=== PATIENT | female | born 1975 | race Hispanic/Latino ===

== ENCOUNTER 2022-01-02 05:37 | Observation (INO) | payer OTHER ==
[2022-01-01 15:58] LABS: BASOPHILS % (AUTO) 0.6 % (0.0-5.0); EOSINOPHILS % (AUTO) 1.7 % (0.0-8.0); HEMATOCRIT 31.7 % (36-48); LYMPHOCYTES % (AUTO) 18.4 % (21.0-51.0); MEAN CORPUSCULAR HEMOGLOBIN 22.4 pg (27.0-33.0); MEAN CORPUSCULAR HGB CONC 29.3 g/dL (32.0-36.0); MEAN CORPUSCULAR VOLUME 76.4 fL (79-99); MONOCYTES % (AUTO) 5.8 % (3.0-13.0); PLATELET COUNT (AUTO) 370 K/uL (130-400); RED BLOOD CELL COUNT(AUTO) 4.15 MIL/uL (4.00-5.50); RED CELL DISTRIBUTION WIDTH 16.5 % (11.0-15.5); WHITE BLOOD COUNT (AUTO) 10.9 K/uL (4.8-10.8)
[2022-01-01 16:08] VITALS: BP 158/98
[2022-01-01 16:15] LABS: APPEARANCE,URINE CLOUDY (CLEAR); BILIRUBIN,URINE NEGATIVE (NEGATIVE); COLOR,URINE YELLOW (YELLOW); GLUCOSE, URINE (UA) NEGATIVE (NEGATIVE); KETONES,URINE NEGATIVE (NEGATIVE); LEUKOCYTE ESTERASE ,URINE NEGATIVE (NEGATIVE); NITRATE,URINE NEGATIVE (NEGATIVE); OCCULT BLOOD,URINE LARGE (NEGATIVE); PROTEIN,URINE NEGATIVE (NEGATIVE); UROBILINOGEN,URINE 0.2 mg/dL (0.2-1.0)
[2022-01-01 16:17] LABS: PROTHROMBIN TIME 10.9 SEC (9.6-11.6)
[2022-01-01 16:18] LABS: PARTIAL THROMBOPLASTIN TIME 27.3 SEC (26.3-35.5)
[2022-01-01 16:22] LABS: BACTERIA,URINE Rare /HPF (None Seen); RBC,URINE 51-100 /HPF (0-1); SQUAMOUS EPITHELIAL CELL,UR Rare /HPF (0-2); WBC,URINE 0-1 /HPF (0-1)
[~2022-01-02] VITALS: Ht 132.1 cm; Wt 110.2 kg
[2022-01-02] VITALS (21 sets, daily range): BP systolic 134–184; BP diastolic 67–95
[2022-01-02] MEDS ORDERED: CEFAZOLIN SODIUM 1 GM VIAL ONE (07:57)
[2022-01-02] MEDS ORDERED: LACTATED RINGERS 1000ML 1,000 ML IV ONE (07:57)
[2022-01-02] MEDS ORDERED: ONDANSETRON 4MG INJ ONE ×2 (12:40→16:54)
[2022-01-02] MEDS ORDERED: FENTANYL CITRATE PF 50 MCG/1 ML 2ML VIAL ONE ×2 (12:40→16:54)
[2022-01-02] MEDS ORDERED: PROPOFOL 10 MG/ML 20ML VIAL IV ONE (12:40)
[2022-01-02] MEDS ORDERED: MIDAZOLAM HCL 1 MG/ML 2ML VIAL ONE (12:40)
[2022-01-02] MEDS ORDERED: SUCCINYLCHOLINE CHLORIDE 20 MG/ML 10 ML VIAL ONE (12:40)
[2022-01-02] MEDS ORDERED: ROCURONIUM 10MG/1ML SYR 10 MG/ML ML ONE ×2 (12:40→14:23)
[2022-01-02] MEDS ORDERED: CEFAZOLIN SODIUM 2 GM VIAL IV ONE (14:02)
[2022-01-02] MEDS ORDERED: METHYLENE BLUE 5 MG/ML AMP ONE (14:46)
[2022-01-02] MEDS ORDERED: HYDRALAZINE 20MG/ML VIAL ONE (17:13)
[2022-01-02] MEDS ORDERED: MEPERIDINE-PF 50 MG/ML SYG ONE (17:36)
[2022-01-02] MEDS ORDERED: METOCLOPRAMIDE 10 MG/2 ML VIAL ONE (17:43)
[2022-01-02] MEDS ORDERED: PROMETHAZINE HCL 25 MG/ML 1ML AMPULE IM PRN ×2 (19:00)
[2022-01-02] MEDS ORDERED: BISACODYL 10 MG SUPP.RECT RC PRN (19:00)
[2022-01-02] MEDS ORDERED: DEXTROSE 5 %-0.45 % NACL 1,000 ML IV PRN (19:00)
[2022-01-02] MEDS ORDERED: IBUPROFEN 600 MG TABLET PO PRN (19:00)
[2022-01-02] MEDS ORDERED: ONDANSETRON 4MG INJ IVP PRN (19:00)
[2022-01-02] MEDS: ACETAMINOPHEN WITH CODEINE 1 TAB TAB PO PRN (20:06)
[2022-01-02] MEDS: SIMETHICONE 80 MG TAB.CHEW PO PRN (21:56)
[2022-01-02] MEDS: DOCUSATE SODIUM 100 MG CAP PO PRN (21:57)
[2022-01-02] MEDS: MEPERIDINE-PF 75 MG/ML SYG IM PRN (23:25)
[2022-01-03] MEDS: MEPERIDINE-PF 75 MG/ML SYG IM PRN (01:06)
[2022-01-03 02:25] VITALS: BP 134/61
[2022-01-03 05:11] LABS: HEMATOCRIT 31.3 % (36-48); MEAN CORPUSCULAR HEMOGLOBIN 22.6 pg (27.0-33.0); MEAN CORPUSCULAR HGB CONC 30.4 g/dL (32.0-36.0); MEAN CORPUSCULAR VOLUME 74.5 fL (79-99); RED BLOOD CELL COUNT(AUTO) 4.2 MIL/uL (4.00-5.50); RED CELL DISTRIBUTION WIDTH 16.4 % (11.0-15.5); WHITE BLOOD COUNT (AUTO) 16.9 K/uL (4.8-10.8)
[2022-01-03] MEDS ORDERED: HYDROCODONE/ACETAMINOPHEN 5/325 MG TAB PO PRN (06:00)
[2022-01-03] MEDS ORDERED: IBUPROFEN 800 MG TAB PO PRN (06:00)
[2022-01-03 07:38] VITALS: BP 131/60
[2022-01-03] MEDS: SIMETHICONE 80 MG TAB.CHEW PO PRN (07:56)
[2022-01-03] MEDS: DOCUSATE SODIUM 100 MG CAP PO PRN (07:56)
[2022-01-03] MEDS ORDERED: ACET-2079 PO (11:11)
[2022-01-03] MEDS ORDERED: FERR325T22 PO (11:12)
[2022-01-03] MEDS: ACETAMINOPHEN WITH CODEINE 1 TAB TAB PO PRN (11:56)
[2022-01-03 12:35] VITALS: BP 130/71
== END 2022-01-03 13:55 | disposition home or self-care (01) ==
LOC: DAH 05:37 → WSH 05:38
PROVIDERS: ADMIT Obstetrics & Gynecology; ATTEND Obstetrics & Gynecology
DX: N92.1 Excessive and frequent menstruation with irregular cycle (principal); Z20.822 Contact with and (suspected) exposure to COVID-19; D50.9 Iron deficiency anemia, unspecified; G50.9 Disorder of trigeminal nerve, unspecified; D64.9 Anemia, unspecified; N73.6 Female pelvic peritoneal adhesions (postinfective); R10.2 Pelvic and perineal pain; Z90.49 Acquired absence of other specified parts of digestive tract; Z98.51 Tubal ligation status; Z98.891 History of uterine scar from previous surgery
CPT/HCPCS: 85025; 85610; 85730; 86850; 86900; 86901; 87426; 86923; 81001; 36415 ×2; 51999; 58552; 96372; 85027; A6260; G0378 ×27; G0379; J7030; A4344; A4215 ×2; J0690 ×2; J7120; J3010 ×2; J0330; J2550; J0360; J2250; J2704; J2405 ×2; Q9968; J2175 ×2; J2765; C1769 ×2; A4649 ×3; A4223; A4222; A4221; A4663; A4600; A4510